=== PATIENT | male | born 1935 | race Caucasian/White ===

== ENCOUNTER 2020-02-16 23:17 | Observation (INO) | payer OTHER ==
[~2020-02-16] VITALS: Ht 170.2 cm; Wt 64.4 kg
[2020-02-17 00:25] VITALS: BP_SYST 133
--- NOTE | 2020-02-17 00:25 | NUR ---
Patient to ER H1 for evaluation. Side rails up.
--- NOTE | 2020-02-17 00:35 | NUR ---
# 16 FR Sheppard catheter with use of sterile technique. Immediate return of 1100 cc pink-tinged urine noted. Bedside drainage bag placed below level of bladder. Pt tolerated procedure well.
--- NOTE | 2020-02-17 00:50 | NUR ---
PT BIB BLS C/O OF NOT BEING URINATE ALL DAY. PT HAD A REED CATHETER PLACED YESTERDAY MORNING AFTER A PROCEDURE WAS DONE THROUGH HIS BELLY BUTTON. PT ABDOMEN DISTENDED. PT REPORTS DRINKING FLUIDS ALL DAY HOPING IT WOULD HELP HIM PEE. PT STATES 8 OUT OF 10 PAIN. PT HX OF PROSTATE CANCER.
--- NOTE | 2020-02-17 01:36 | NUR ---
PATIENT DENIES PAIN. PT LAYING IN BED, EVEN BREATHING.
--- NOTE | 2020-02-17 02:15 | NUR ---
PATIENT LAYING COMFORTABLY IN BED. SO SIGNS OF ACUTE DISTRESS.
--- NOTE | 2020-02-17 03:03 | NUR ---
ER Dr. ROQUE at bedside examining patient.
--- NOTE | 2020-02-17 03:40 | NUR ---
PATIENT SLEEPING IN BED. NO SIGNS OF ACUTE DISTRESS.
--- NOTE | 2020-02-17 03:45 | NUR ---
REPORT GIVEN TO SAHARA BULLOCK FOR CONTINUATION OF CARE.
--- NOTE | 2020-02-17 04:10 | NUR ---
Note undone in EDM - 02/17/20 at 0539 by SDEDBK Patient given written and verbal discharge instructions and verbalizes understanding. ER discussed with patient the results and treatment provided. Patient in stable condition. ID arm band removed. No Rx given. Patient educated on pain management and to follow up with PMD. Pain Scale 0/10. Opportunity for questions provided and answered. Patient awaiting transportation to home. ETA [address] [employer].
--- NOTE | 2020-02-17 05:30 | NUR ---
Patient complains of acid reflux and substernal chest pain. MD Quick aware. Awaiting further orders.
[2020-02-17] MEDS ORDERED: ASPIRIN 81 MG TAB.CHEW PO ONE (05:45)
--- NOTE | 2020-02-17 05:50 | NUR ---
# 18 gauge angiocath placed to RAC. Use of asceptic technique. Opsite placed over site. Blood return noted. Blood for lab drawn from site. Flushed with 10 cc of normal saline. No evidence of infiltration noted. Patient tolerated well.
--- NOTE | 2020-02-17 05:55 | NUR ---
Radiology at bedside.
[2020-02-17 06:01] LABS: BASOPHILS % (AUTO) 0.2 % (0.0-2.0); EOSINOPHILS % (AUTO) 0.3 % (0.0-4.0); HEMATOCRIT 35.9 % (36-54); HEMOGLOBIN 12.2 g/dL (14.0-18.0); LYMPHOCYTES # (AUTO) 0.9 K/uL (1.0-5.5); LYMPHOCYTES % (AUTO) 5.5 % (20.5-51.5); MEAN CORPUSCULAR HEMOGLOBIN 31 pg (27-31); MEAN CORPUSCULAR HGB CONC 34 % (32-36); MEAN CORPUSCULAR VOLUME 92 fL (79.0-98.0); MONOCYTES # (AUTO) 0.8 K/uL (0.0-1.0); MONOCYTES % (AUTO) 4.4 % (1.7-9.3); NEUTROPHILS # (AUTO) 15.3 K/uL (1.8-7.7); NEUTROPHILS % (AUTO) 89.6 % (40.0-70.0); PLATELET COUNT (AUTO) 359 K/uL (130-430); RED CELL DISTRIBUTION WIDTH 13.1 % (9.0-15.0); WHITE BLOOD COUNT (AUTO) 17.1 K/uL (4.8-10.8)
--- NOTE | 2020-02-17 06:02 | NUR ---
Patient moved to room 7 for further monitoring. Placed on inseminator, blood pressure machine and pulse oximeter. Side rails up.
[2020-02-17] MEDS ORDERED: FAMOTIDINE PF 20 MG/2 ML VIAL IVP ONE (06:15)
[2020-02-17] MEDS ORDERED: NITROGLYCERIN 0.4 MG TAB.SUBL SL ONE (06:15)
[2020-02-17 06:23] LABS: ANION GAP 8 (5-15); CHLORIDE 102 mmol/L (98-107); CREATININE 0.83 mg/dL (0.55-1.30); GLUCOSE 131 mg/dL (70-99); POTASSIUM 3.5 mmol/L (3.5-5.1); SODIUM SERUM 136 mmol/L (136-145); UREA NITROGEN, BLOOD 17 mg/dL (8-21)
[2020-02-17 06:27] LABS: INR 1.1 (0.80-1.20); PROTHROMBIN TIME 10.7 SECS (9.5-12.5)
[2020-02-17 06:28] LABS: ALANINE AMINOTRANSFERASE 20 U/L (12-78); ALBUMIN 2.9 g/dL (3.4-4.8); ASPARTATE AMINOTRANSFERASE 18 U/L (10-37)
--- NOTE | 2020-02-17 06:44 | NUR ---
Patient reports chest discomfort is relieved after 1 Nitro 0.4mg dose. MD Quick aware.
[2020-02-17] MEDS ORDERED: cefTRIAXone 1 GM IVPB PREMIX 50 ML IV ONE (07:15)
--- NOTE | 2020-02-17 07:15 | NUR ---
Report given to SAHARA Mercedes. All care endorsed.
--- NOTE | 2020-02-17 07:25 | NUR ---
Patient sitting up in [facility], A&Ox3. unable to recall home phone number
[2020-02-17] MEDS ORDERED: TAMS-11 PO (08:20)
[2020-02-17] MEDS ORDERED: ASPI-1153 PO (08:37)
[2020-02-17] MEDS ORDERED: FLUO40CA49 PO (08:37)
[2020-02-17] MEDS ORDERED: NOR10 PO (08:37)
[2020-02-17] MEDS ORDERED: LISI1TAB32 PO (08:37)
--- NOTE | 2020-02-17 08:40 | NUR ---
ER Dr. Stanford at bedside examining patient.
--- NOTE | 2020-02-17 09:18 | NUR ---
DR LORENZANA AT BEDSIDE EVALUATING PT.
--- NOTE | 2020-02-17 09:50 | NUR ---
Carissa, pt's daughter, called and requested for any update. [phone]
--- NOTE | 2020-02-17 09:50 | NUR ---
Patient given cardiac diet breakfast tray
--- NOTE | 2020-02-17 09:55 | NUR ---
Daughter of PT updated via telephone.
--- NOTE | 2020-02-17 10:30 | NUR ---
Patient awake and standing at bedside. PT re-oriented to [facility] ER, rodrigez catheter placement and repositioned in [facility].
[2020-02-17 11:21] LABS: BILIRUBIN,URINE 1+ (NEGATIVE); BLOOD, URINE 3+ (NEGATIVE); CLARITY/URINE CLOUDY (CLEAR); COLOR,URINE RED (YELLOW); GLUCOSE,URINE TRACE (NEGATIVE); KETONES,URINE 1+ (NEGATIVE); LEUKOCYTE ESTERASE ,URINE 3+ (NEGATIVE); NITRITE, URINE POSITIVE (NEGATIVE); PH,URINE 7.5 (5.0-8.0); PROTEIN URINE 2+ (NEGATIVE)
--- NOTE | 2020-02-17 11:25 | NUR ---
Patient awake, attempting to get out of gurney. PT re-oriented to [facility] ER, rodrigez catheter placement and repositioned in gurney, lights off per pt request.
[2020-02-17 11:27] LABS: BACTERIA,URINE FEW /HPF (None Seen); RBC,URINE >100 /HPF (0-3); WBC,URINE >100 /HPF (0-3)
[2020-02-17] MEDS ORDERED: TERA10CA4 PO (12:01)
[2020-02-17] MEDS ORDERED: FINA5TAB3 PO (12:02)
[2020-02-17] MEDS: HYDROCHLOROTHIAZIDE 12.5 MG CAPSULE (HCTZ) PO SCH (13:48)
[2020-02-17] MEDS: FLUoxetine HCL 20 MG CAPSULE (PROzac) PO SCH (13:48)
[2020-02-17] MEDS: TAMSULOSIN HCL 0.4 MG CAP PO SCH (13:48)
[2020-02-17] MEDS: LISINOPRIL 10 MG TABLET (PRINIVIL) PO SCH (13:49)
--- NOTE | 2020-02-17 14:04 | NUR ---
Patient will be admitted to care of DR. LEPE. Admitted to TELE unit. Will go to room 111A. Belongings list completed. Complete and up to date summary report printed. SBAR report to be given at bedside with opportunity for questions. Transfer to TELE via ACLS protocol. Licensed nurse present. IV present no signs or symptoms of infiltration.
[2020-02-17] MEDS ORDERED: LISINOPRIL 10 MG TABLET (PRINIVIL) ONE (14:12)
[2020-02-17] MEDS ORDERED: ASPIRIN 81 MG TABLET(ECOTRIN) ONE (14:16)
[2020-02-17] MEDS ORDERED: amLODIPine BESYLATE 10 MG TABLET ONE (14:18)
--- NOTE | 2020-02-17 14:20 | NUR ---
ADMISSION NOTE PT RECEIVED BY ER NURSES VIA [facility]. PT AOX2, ON ROOM AIR. PT DENIES ANY PAIN OR DISCOMFORT AT THIS TIME. IV SALINE LOCKED. CALL LIGHT WITHIN REACH, BED IN LOW AND LOCKED POSITION WITH BED ALARM ON.
[2020-02-17 14:33] VITALS: BP_SYST 152
--- NOTE | 2020-02-17 14:57 | NUR ---
CONSULTATION PAGED REASON FOR CONSULTATION:SHORTNESS OF BREATH WAS CONSULT CALLED?Y PERSON WHO WAS NOTIFIED:KEN CHAN CONSULTING PHYSICIAN:GIUSEPPE CHAN [employer] SPECIALTY:PULMONARY [employer]ACULTY [employer] PHONE NUMBER:[phone] REQUESTING PHYSICIAN:MAYRA BANKS Addendum: 02/17/20 at 1541 by Lucien Fontana [place]/ WRONG PATIENT
--- NOTE | 2020-02-17 15:52 | NUR ---
CONSULTATION PAGED REASON FOR CONSULTATION:CHEST PAIN WAS CONSULT CALLED?Y PERSON WHO WAS NOTIFIED:LEIGH CONSULTING PHYSICIAN:DENISSE LOVE ( FINANCIAL OPERATIONS ANALYST) SURGICAL PROCESSOR SPECIALTY:UROLOGY SURGICAL PROCESSOR PHONE NUMBER:[phone] REQUESTING PHYSICIAN:POLI DANIELSON
[2020-02-17 16:45] VITALS: BP_SYST 143
--- NOTE | 2020-02-17 16:45 | NUR ---
ROUNDS Pt sitting up in bed with no s/s resp distress, no c/o chest pain or chest pressure. Pt reminded to call nursing for assist out of bed for safety-pt verbalized his understanding.
[2020-02-17] MEDS: PIPERACILLIN/TAZO 3.375/DEX-IS 50 ML IV SCH ×2 (18:15→23:07)
--- NOTE | 2020-02-17 19:15 | NUR ---
CLOSING NOTE Pt sitting up in bed watching television with no s/s resp distress, no c/o chest pain or chest pressure, no c/o pain or discomfort. Pt pleasantly confused at times-pt reoriented to place and purpose and safety. IVPB infusing well to RAC at ordered rate with no s/s infiltration to site. Sheppard draining to gravity with red-tinged urine. Side rails up x3, bed alarm on, room across from nursing station for safety. Call light within reach.
--- NOTE | 2020-02-17 20:30 | NUR ---
Phoned FAMILY Carissa Tillman Daughter of patient They agree with the DOCTOR FOR SOFT WRIST RESTRAINTS FOR SAFETY FALL RISK . Addendum: 02/17/20 at 2327 by Vinicius Hernandez RN Carissa Bah .
[2020-02-17 21:00] VITALS: BP_SYST 137
--- NOTE | 2020-02-17 21:00 | NUR ---
PHONED DR ISAAC MCGEE NEW ORDERS OBTAINED FOR WRIST Restraints FALL RISK .
--- NOTE | 2020-02-17 21:05 | NUR ---
UPDATED DR ISAAC MCGEE PARTIAL DVT LOWER EXTREMITIES , NEW ORDERS LOVENOX Rx to dose .
[2020-02-17] MEDS ORDERED: COMMUNICATION ORDER XX ONE (22:15)
--- NOTE | 2020-02-17 23:07 | NUR ---
paged Dr. Martinez for orders. Spoke with Dennis from the exchange.
[2020-02-17] MEDS: ENOXAPARIN SODIUM 60 MG/0.6 ML SYRINGE SUBCUT SCH (23:09)
--- NOTE | 2020-02-17 23:16 | NUR ---
Patient AGITATED frequent PULLING ON SOFT RESTRAINTS wrist wanting to AMBULATE FALL MEASURES implemented .
--- NOTE | 2020-02-17 23:22 | NUR ---
LOVENOX 60 MG SUB Q. administer as ordered for DVT .
[2020-02-17] MEDS ORDERED: DIPHENHYDRAMINE INJ 50 MG/ML VIAL IVP ONE (23:30)
[2020-02-18] VITALS: BP_SYST 144
[2020-02-18] MEDS ORDERED: LORazepam 2 MG/ML VIAL IVP ONE (01:30)
--- NOTE | 2020-02-18 01:33 | NUR ---
BENADRYL 50 MG IVP NOT HELPFUL FOR AGITATION .
--- NOTE | 2020-02-18 01:33 | NUR ---
PHONED PAGED DR ISAAC MCGEE PT AGITATION .
--- NOTE | 2020-02-18 01:34 | NUR ---
NEW ORDERS FOR LORAZEPAM 0.5 MG IVP .
--- NOTE | 2020-02-18 02:08 | NUR ---
CONSULT REASON FOR CONSULT: CHEST PAIN PERSON WHO WAS NOTIFIED: PERM CONSULTING PHYSICIAN: DR. LORENZANA MOTORIZED S[employer] PHONE NUMBER: [phone] REQUESTING PHYSICIAN: DR. LEPE
--- NOTE | 2020-02-18 02:49 | NUR ---
LORAZEPAM 0.5 MG IVP helpful for AGITATION , patient calm skin dry warm chest movement symmetrical .
[2020-02-18] MEDS: PIPERACILLIN/TAZO 3.375/DEX-IS 50 ML IV SCH (05:21)
--- NOTE | 2020-02-18 07:25 | NUR ---
Opening Notes Patient is awake, alert and oriented x2. Patient is noted with confusion and agitation. Patient attempts to get out of bed and dangles his legs over the siderails. Patient remains to soft wrist bilateral restraints, no injury noted at this time. Patient mumbles words. No resp distress noted. Breathing is even and unlabored. Patient denies any pain at this time. IV site on right AC, 18 gauge, intact. Patient refuses to eat breakfast, ate 0%. Safety and fall precautions in place. Bed in lowest position, alarm on, locked. Will continue to monitor.
[2020-02-18 08:00] VITALS: BP_SYST 144
--- NOTE | 2020-02-18 08:30 | NUR ---
Daughter called and reported patient is in distress Daughter called and reported patient is in distress and "to go see the patient immediately." Nurse went to assess the patient, patient is sleeping in bed. No distress noted. Patient denies any pain. Attempted to call daughter back with the telephone number that was given, but phone number is not working. Will wait for daughter to call back.
[2020-02-18] MEDS ORDERED: amLODIPine BESYLATE 10 MG TABLET PO SCH ×2 (09:00)
[2020-02-18] MEDS ORDERED: ASPIRIN 81 MG TABLET(ECOTRIN) PO SCH (09:00)
--- NOTE | 2020-02-18 09:00 | NUR ---
Patients Daughter Patients Daughter called facility to orange picker machine operator the patient. Patients daughter was notified that the patient needed bloodwork done STAT before discharge, per MD orders. Patients daughter got upset because she was told to come right away. Per daughter, she will leave the facility and wait for us to call her to orange picker machine operator her dad.
[2020-02-18] MEDS: FLUoxetine HCL 20 MG CAPSULE (PROzac) PO SCH (09:31)
[2020-02-18] MEDS: TAMSULOSIN HCL 0.4 MG CAP PO SCH (09:31)
[2020-02-18] MEDS: LISINOPRIL 10 MG TABLET (PRINIVIL) PO SCH (09:32)
[2020-02-18] MEDS: HYDROCHLOROTHIAZIDE 12.5 MG CAPSULE (HCTZ) PO SCH (09:32)
[2020-02-18] MEDS: ENOXAPARIN SODIUM 60 MG/0.6 ML SYRINGE SUBCUT SCH (09:34)
--- NOTE | 2020-02-18 10:00 | NUR ---
Notes Patient is alert and oriented x2. Patient is still noted with agitation, continues to pull on his restraints. Nurse educated patient on purpose of restraints for patients safety. Patient is confused. Patient also notified that he will be discharging today and his daughter will pick him up. Sheppard catheter in place, below the bladder. No resp distress noted. Breathing is even and unlabored. Patient denies any pain at this time. Safety and fall measures in place. Call light within reach. Bed in lowest position, alarm on, locked.
[2020-02-18 10:47] VITALS: BP_SYST 144
[2020-02-18] MEDS ORDERED: APIX5TAB PO ×3 (11:14→11:30)
[2020-02-18 11:28] LABS: BASOPHILS % (AUTO) 0.5 % (0.0-2.0); EOSINOPHILS # (AUTO) 0.1 K/uL (0.0-0.4); EOSINOPHILS % (AUTO) 1.8 % (0.0-4.0); HEMATOCRIT 33.5 % (36-54); HEMOGLOBIN 11.4 g/dL (14.0-18.0); LYMPHOCYTES # (AUTO) 0.7 K/uL (1.0-5.5); LYMPHOCYTES % (AUTO) 9.5 % (20.5-51.5); MEAN CORPUSCULAR HEMOGLOBIN 32 pg (27-31); MEAN CORPUSCULAR HGB CONC 34 % (32-36); MEAN CORPUSCULAR VOLUME 93 fL (79.0-98.0); MONOCYTES # (AUTO) 0.7 K/uL (0.0-1.0); MONOCYTES % (AUTO) 9.3 % (1.7-9.3); NEUTROPHILS # (AUTO) 6.1 K/uL (1.8-7.7); NEUTROPHILS % (AUTO) 78.9 % (40.0-70.0); PLATELET COUNT (AUTO) 341 K/uL (130-430); RED BLOOD CELL COUNT(AUTO) 3.61 MIL/uL (4.2-6.2); RED CELL DISTRIBUTION WIDTH 13.2 % (9.0-15.0); WHITE BLOOD COUNT (AUTO) 7.8 K/uL (4.8-10.8)
[2020-02-18] MEDS ORDERED: CEPH-568 PO (11:28)
[2020-02-18 11:36] VITALS: BP_SYST 140
--- NOTE | 2020-02-18 12:30 | NUR ---
D/C Patient Patient given medication reconciliation form and D/C instructions. Exit Care provided. Patient verbalized understanding. MD discussed with patient the results and treatment provided. Ambulatory with steady gait for discharge to home. Patient in stable condition, ID band removed. IV catheter removed, intact and dressing applied, no active bleeding. Patient left facility with rodrigez catheter still placed d/t urine retention. Nurse educated patients Eliquis prescription. Aware and agreed. Per patients family, he came in with a medical card and ID. But items are not listed in inventory. Patient educated on pain management. All belongings sent with patient.
[2020-02-18] MEDS ORDERED: APIXABAN 2.5 MG TABLET PO SCH (21:00)
== END 2020-02-18 12:35 | disposition home health service (06) ==
LOC: SED 23:17 → STU 02-17 04:10 → SED 02-17 04:10 → STU 02-17 08:53
PROVIDERS: ADMIT Internal Medicine Hospice and Palliative Medicine; ATTEND Internal Medicine Hospice and Palliative Medicine
DX: R07.89 Other chest pain (principal); N39.0 Urinary tract infection, site not specified; R33.9 Retention of urine, unspecified; R06.02 Shortness of breath; R31.9 Hematuria, unspecified; F03.90 Unspecified dementia, unspecified severity, without behavioral disturbance, psychotic disturbance, mood disturbance, and anxiety; I10 Essential (primary) hypertension; N40.0 Benign prostatic hyperplasia without lower urinary tract symptoms; Z79.82 Long term (current) use of aspirin; Z79.899 Other long term (current) drug therapy; Z90.49 Acquired absence of other specified parts of digestive tract; Z85.46 Personal history of malignant neoplasm of prostate
CPT/HCPCS: 36415 ×2; 71045; 80053; 81000; 83880; 84484 ×2; 85025 ×2; 85379; 85610; 85730; 87086; 87186; 93005; 93306; 93970; 96365; 96366 ×2; 96367; 96372 ×2; 96375 ×3; 99285; G0378; J0696; J1200; J1650 ×2; J2060; J2543; J3490